=== PATIENT | male | born 1990 | race Caucasian/White ===

== ENCOUNTER 2017-10-15 13:05 | Emergency (ER) | payer OTHER ==
[2017-10-15 13:16] VITALS: BP 120/64; PULSE 64; RESP 16; TEMP 96.9
--- NOTE | 2017-10-15 13:39 | XR ---
PROCEDURE: XR hand complete RT 3 views DATE AND TIME: 10/15/2017 1:33 PM REFERRING PHYSICIAN: Akira Bravo CLINICAL INDICATION: PHH, Pain. 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 TECHNIQUE: Department protocol. COMPARISON: None FINDINGS: Bones and joints and soft tissues are unremarkable. IMPRESSION: Negative examination.
--- NOTE | 2017-10-15 13:57 | ED ---
General Adult HPI - General Chief complaint: Extremity Injury, Upper Stated complaint: right hand pain Time Seen by Provider: 10/15/17 13:15 Source: patient, RN notes reviewed Mode of arrival: ambulatory Limitations: no limitations - History of Present Illness Initial comments: 27-year-old male presents to the emergency department for chief complaint of right hand pain 3 weeks. Patient states that 3 weeks ago he was pulling on a rope when he felt a sharp pain in his right hand. Patient states the pain has worsened since that time. Patient complains of pain mostly in the first through third metacarpals palmar aspect right hand. Patient denies pain in the volar aspect of the right wrist. Patient states the tip of his thumb feels numb and it is difficult to close his hand all the way. Patient denies any fevers or chills at home. Patient denies any other injuries. Patient did not fall or hit his head. Patient has been taking Motrin but states ice does not help. Patient states the Motrin helps somewhat. Patient has no other complaints at this time including shortness of breath, chest pain, abdominal pain, nausea or vomiting, headache, or visual changes. - Related Data Previous Rx's Medication Instructions Recorded Ibuprofen [Motrin] 600 mg PO Q8HR PRN #20 tab 10/15/17 Allergies Allergy/AdvReac Type Severity Reaction Status Date / Time No Known Allergies Allergy Verified 10/15/17 13:16 Review of Systems ROS Statement: Those systems with pertinent positive or pertinent negative responses have been documented in the HPI. ROS Other: All systems not noted in ROS Statement are negative. Past Medical History Past Medical History: No Reported History History of Any Multi-Drug Resistant Organisms: None Reported Past Surgical History: No Surgical Hx Reported Past Psychological History: No Psychological Hx Reported Smoking Status: Current every day smoker Past Alcohol Use History: Occasional Past Drug Use History: None Reported General Exam Limitations: no limitations General appearance: alert, in no apparent distress Head exam: Present: atraumatic, normocephalic, normal inspection Eye exam: Present: normal appearance ENT exam: Present: normal exam, mucous membranes moist Neck exam: Present: normal inspection, full ROM. Absent: tenderness, meningismus, lymphadenopathy Respiratory exam: Present: normal lung sounds bilaterally. Absent: respiratory distress, wheezes, rales, rhonchi, stridor Cardiovascular Exam: Present: regular rate, normal rhythm, normal heart sounds. Absent: systolic murmur, diastolic murmur, rubs, gallop, clicks Extremities exam: Present: tenderness (Patient has tenderness along the first through third metacarpals palmar aspect in the right hand. No wrist or scaphoid tenderness.), normal capillary refill (Refill less than 2 seconds and radial pulse 2+. Normal Ye test.), other (Sensation intact in the right upper extremity. Negative Tinel sign. Negative Phalen sign.). Absent: full ROM (Patient has full extension of all fingers in the right hand. Patient does have some limited flexion of all fingers in the right hand. Fingers are not held in flexion. No pain with active or passivie extension of the fingers 1 - 3. No swelling over any tendons in the finger. Patient has full range of motion in the right wrist. ), joint swelling (No swelling or ecchymosis noted in the right hand. No erythema or signs of infection.) Course Vital Signs 10/15/17 13:14 Temperature 96.9 F L Pulse Rate 64 Respiratory 16 Rate Blood Pressure 120/64 O2 Sat by Pulse 98 Oximetry Medical Decision Making - Medical Decision Making 27-year-old male presents to the emergency department for a chief complaint of right hand pain 3 weeks. Patient was pulling on a rope when he felt a sharp pain in his right hand. Patient states the pain is mostly in the first through third metacarpals on the palmar aspect of the right hand. Patient states his thumb feels somewhat numb. No fevers at home. patient states it has been a trigger finger for a few weeks and feels a snap when he flexed and extended it. 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 On exam no swelling or ecchymosis noted of the right hand. Patient has limited flexion of the fingers of the right hand but is able to flex them somewhat. Full extension. No signs of infection in the tendons of the hand. No redness or swelling over tendons. Diffuse tenderness over 1-3 metacarpals palmar aspect. No pain with active or passive extension. Negative [place] signs. No openings in the skin of the hand. Neurovascular intact in the right upper extremity. No tenderness in the wrist and a negative Phalen/Tinel sign. Not likely a carpal tunnel. X-ray of the right hand shows bones joints and soft tissues as unremarkable. Negative x-ray. Patient will be aced wrapped and rest ice and elevate the right hand. He will be referred to orthopedics. He will follow up with primary care in 1-2 weeks. He will return to the emergency department if he has any worsening symptoms. he was educated to return if he has any redness of the palmar aspect of the hand or pain with extension. Disposition Clinical Impression: Hand pain, right Disposition: HOME SELF-CARE Condition: Good Instructions: Hand Sprain (ED), RICE Therapy (ED) Additional Instructions: Please take Motrin and Tylenol for pain. Please rest ice and elevate the right hand. Please follow-up with orthopedics in one to 2 days. Return to the emergency department if you have any worsening symptoms. Prescriptions: Ibuprofen [Motrin] 600 mg PO Q8HR PRN #20 tab PRN Reason: Pain Is patient prescribed a controlled substance at d/c from ED?: No Referrals: Duane Ken III, MD [Primary Care Provider] - 1-2 days Saurav Ceballos DO [Doctor of Osteopathic Medicine] - 1-2 days Time of Disposition: 13:56
== END 2017-10-15 14:28 | disposition home or self-care (01) ==
LOC: EC 13:05
DX: M25.541 Pain in joints of right hand (principal); R20.0 Anesthesia of skin; F17.200 Nicotine dependence, unspecified, uncomplicated; X50.0XXA Overexertion from strenuous movement or load, initial encounter; Y93.89 Activity, other specified
CPT/HCPCS: 99283

== ENCOUNTER 2018-12-27 04:50 | Emergency (ER) | payer OTHER ==
--- NOTE | 2018-12-27 06:27 | XR ---
EXAM: XR Chest, 2 Views CLINICAL HISTORY: ITS.REASON XR Reason: pain TECHNIQUE: Frontal and lateral views of the chest. COMPARISON: No relevant prior studies available. FINDINGS: Lungs: Unremarkable. No consolidation. Pleural space: Unremarkable. No pneumothorax. Heart: Unremarkable. No cardiomegaly. Mediastinum: Unremarkable. Bones/joints: Unremarkable. IMPRESSION: Normal chest x-rays.
--- NOTE | 2018-12-27 07:10 | ED ---
Extremity Problem HPI - Related Data Previous Rx's Medication Instructions Recorded Ibuprofen [Motrin] 600 mg PO Q8HR PRN #20 tab 10/15/17 Allergies Allergy/AdvReac Type Severity Reaction Status Date / Time No Known Allergies Allergy Verified 10/15/17 13:16 Review of Systems ROS Statement: Those systems with pertinent positive or pertinent negative responses have been documented in the HPI. ROS Other: All systems not noted in ROS Statement are negative. Past Medical History Past Medical History: No Reported History History of Any Multi-Drug Resistant Organisms: None Reported Past Surgical History: No Surgical Hx Reported Past Psychological History: No Psychological Hx Reported Smoking Status: Current every day smoker Past Alcohol Use History: Occasional Past Drug Use History: None Reported Medical Decision Making - Medical Decision Making This patient was begun on downtime, please see the paper record. Disposition Clinical Impression: Ganglion cyst Disposition: HOME SELF-CARE Condition: Good Instructions (If sedation given, give patient instructions): Ganglion Cysts (ED) Is patient prescribed a controlled substance at d/c from ED?: No Referrals: None,Stated [Primary Care Provider] - 1-2 days Jessee Winslow MD [STAFF PHYSICIAN] - 1-2 days
== END 2018-12-27 07:17 | disposition home or self-care (01) ==
LOC: EC 04:50
DX: M67.432 Ganglion, left wrist (principal); I45.10 Unspecified right bundle-branch block; F17.200 Nicotine dependence, unspecified, uncomplicated
CPT/HCPCS: 71046; 99283

== ENCOUNTER 2019-08-20 18:30 | Emergency (ER) | payer OTHER ==
[2019-08-20 18:34] VITALS: RESP 18; TEMP 98.3
[2019-08-20] MEDS ORDERED: MORPHINE SULFATE 4 MG/ML SYRINGE IM STA (18:51)
--- NOTE | 2019-08-20 18:54 | ED ---
Male Urogenital HPI - General Source: patient Mode of arrival: ambulatory Limitations: no limitations <Regine Garcia - Last Filed: 08/20/19 18:51> <Rashmi Colon - Last Filed: 08/20/19 22:13> - General Chief complaint: Urogenital Stated complaint: testicle pain Time Seen by Provider: 08/20/19 18:35 - History of Present Illness Initial comments: Patient is a 29-year-old male presenting to the emergency Department with complaints of severe pain in the left side of his scrotum times one week. Patient states he noticed the pain started approximately one week ago but then today the pain intensified. Patient is tearful on exam. Patient states he denies any recent fever, chills, abdominal pain. Denies history of hernias. He denies dysuria, discharge. He has little concern for STDs. He denies any trauma or injuries. He has no other complaints. Patient describes his pain as sharp and a 10/10. Patient has no other complaints. Upon arrival to the ER, vital signs are stable. (Regine Garcia) - Related Data Previous Rx's Medication Instructions Recorded Ibuprofen [Motrin] 600 mg PO Q8HR PRN #20 tab 10/15/17 Doxycycline Hyclate 100 mg PO BID 10 Days #20 tab 08/20/19 Allergies Allergy/AdvReac Type Severity Reaction Status Date / Time No Known Allergies Allergy Verified 08/20/19 18:35 Review of Systems ROS Other: All systems not noted in ROS Statement are negative. <Regine Garcia - Last Filed: 08/20/19 18:51> ROS Other: All systems not noted in ROS Statement are negative. <Rashmi Colon - Last Filed: 08/20/19 22:13> ROS Statement: Those systems with pertinent positive or pertinent negative responses have been documented in the HPI. Past Medical History Past Medical History: No Reported History History of Any Multi-Drug Resistant Organisms: None Reported Past Surgical History: No Surgical Hx Reported Past Psychological History: No Psychological Hx Reported Smoking Status: Current every day smoker Past Alcohol Use History: Occasional Past Drug Use History: None Reported <Rgeine Garcia - Last Filed: 08/20/19 18:51> General Exam Limitations: no limitations <Regine Garcia - Last Filed: 08/20/19 18:51> - General Exam Comments Initial Comments: GENERAL: Patient is crying on exam, appears to be an mild distress secondary to pain. HEAD: Atraumatic, normocephalic. EYES: Pupils equal round and reactive to light, extraocular movements intact, sclera anicteric, conjunctiva are normal. ENT: TMs normal, nares patent, oropharynx clear without exudates. Moist mucous membranes. NECK: Normal range of motion, supple without lymphadenopathy or JVD. LUNGS: Breath sounds clear to auscultation bilaterally and equal. No wheezes rales or rhonchi. HEART: Regular rate and rhythm without murmurs, rubs or gallops. ABDOMEN: Soft, nontender, normoactive bowel sounds. No guarding, no rebound. No masses appreciated. : Normal external exam, severe pain on the left side of the scrotum with palpation. There is no erythema,no significant swelling. Patient is circumcised. There is no discharge. EXTREMITIES: Normal range of motion, no pitting or edema. No clubbing or cyanosis. NEUROLOGICAL: Normal speech, normal gait. PSYCH: Normal mood, normal affect. SKIN: Warm, Dry, normal turgor, no rashes or lesions noted. (Regine Garcia) Course Vital Signs 08/20/19 08/20/19 18:32 22:03 Temperature 98.3 F Pulse Rate 83 79 Respiratory 18 18 Rate Blood Pressure 146/72 134/71 O2 Sat by Pulse 99 99 Oximetry Medical Decision Making - Radiology Data Radiology results: report reviewed, image reviewed <Rashmi Colon - Last Filed: 08/20/19 22:13> - Medical Decision Making 29-year-old male patient presented to the emergency department today for evaluation of testicular pain for the last week. States the pain worsened significantly today. Patient was initially seen by Regine Garcia PA-c. I took over care. Urinalysis reviewed and was unremarkable. US report was reviewed and showed evidence for acute epididymitis. Given the patient's age or did discuss possibility of sexually transmitted infections as a cause for his symptoms. He will be given a dose of Rocephin and did on doxycycline for 10 days. He is instructed to follow-up with his primary care physician for recheck in 1-2 days. Chlamydia and gonorrhea testing are pending. Return parameters were discussed in detail. He verbalizes understanding and agrees with this plan. (Rashmi Colon) - Lab Data Lab Results 08/20/19 Range/Units 19:27 Urine Color Yellow Urine Appearance Clear (Clear) Urine pH 6.5 (5.0-8.0) Ur Specific [place] 1.030 (1.001-1.035) Urine Protein Negative (Negative) Urine Glucose (UA) Negative (Negative) Urine Ketones Negative (Negative) Urine Blood Negative (Negative) Urine Nitrite Negative (Negative) Urine Bilirubin Negative (Negative) Urine Urobilinogen <2.0 (<2.0) mg/dL Ur Leukocyte Esterase Trace H (Negative) Urine RBC <1 (0-5) /hpf Urine WBC 1 (0-5) /hpf Amorphous Sediment Rare H (None) /hpf Urine Mucus Rare H (None) /hpf - Radiology Data Scrotal ultrasound with Doppler was obtained. Report reviewed in its entirety. Impression by Dr. Tee shows increased local blood flow and small area of the epididymis suspicious for acute epididymitis. (Rashmi oClon) Disposition <Regine Garcia - Last Filed: 08/20/19 18:51> Is patient prescribed a controlled substance at d/c from ED?: No Time of Disposition: 21:58 <Rashmi Colon - Last Filed: 08/20/19 22:13> Clinical Impression: Acute epididymitis Disposition: HOME SELF-CARE Condition: Good Instructions (If sedation given, give patient instructions): Epididymitis (ED) Additional Instructions: Complete antibiotic prescription in full to cure your infection. Follow up with your primary care physician for recheck in 1-2 days. Await STD results which take about 3 days, if you have not heard anything at this time he can call free results. Return to the emergency department for any new, worsening, or concerning symptoms. Prescriptions: Doxycycline Hyclate 100 mg PO BID 10 Days #20 tab Referrals: Michael Lizarraga MD [STAFF PHYSICIAN] - 1-2 days
[2019-08-20 19:52] LABS: Amorphous Sediment,Urine Rare /hpf; Appearance,Urine Clear (Clear); Bilirubin,Urine Negative (Negative); Blood,Urine Negative (Negative); Color,Urine Yellow; Glucose,Urine (UA) Negative (Negative); Ketones,Urine Negative (Negative); Leukocyte Esterase,Urine Trace (Negative); Mucus,Urine Rare /hpf; Nitrite,Urine Negative (Negative); PH, Urine 6.5 (5.0-8.0); Protein,Urine Negative (Negative); RBC,Urine <1 /hpf (0-5); Urobilinogen,Urine <2.0 mg/dL (<2.0); WBC,Urine 1 /hpf (0-5)
--- NOTE | 2019-08-20 21:13 | US ---
EXAMINATION TYPE: US scrotum with doppler. Grayscale and color Doppler Duplex imaging performed of gretchen nichols scrotum. DATE OF EXAM: 08/20/2019 COMPARISON: NONE CLINICAL HISTORY: severe pain. Severe left testicular pain x 1 week. EXAM MEASUREMENTS: TESTICLES: Right Testicle: 3.8 x 2.6 x 2.0 cm Left Testicle: 3.8 x 2.6 x 1.9 cm EPIDIDYMIS HEAD: Right Epididymis: 0.8 x 1.3 x 1.0 cm Left Epididymis: 0.8 x 1.7 x 1.1 cm *Anechoic area seen left epididymal head measurin.4 x 0.3 x 0.4 cm. What appears to be the left epididymal tail inferolateral to the left testicle, increased vascularity seen (Image [id number]). Patient's area of pain is left sided/lateral. Doppler performed to assess for testicular vascularity; bilateral color flow and waveforms are seen. Presence of hydroceles: Not seen. Presence of varicoceles: Vessels appear to measure up to 2.2 mm on the left side. Increased vascularity to 4 mm hypoechoic oval area left epididymis. IMPRESSION: Increased focal blood flow in small area of epididymis suspicious for acute epididymitis.
[2019-08-20] MEDS ORDERED: cefTRIAXone 250 MG VIAL IM STA (21:57)
[2019-08-20] MEDS ORDERED: DOXYCYCLINE 100 MG CAP PO STA (21:57)
[2019-08-20 22:06] VITALS: BP 134/71; PULSE 79
== END 2019-08-20 22:10 | disposition home or self-care (01) ==
LOC: EC 18:30
DX: N45.1 Epididymitis (principal); F17.200 Nicotine dependence, unspecified, uncomplicated
CPT/HCPCS: 81001; 87491; 87591; 93975; 76870; 96372; 99284; J0696

== ENCOUNTER 2020-09-12 22:39 | Emergency (ER) | payer OTHER ==
[2020-09-12 22:42] VITALS: BP 127/82; PULSE 77; RESP 18; TEMP 98.3
--- NOTE | 2020-09-12 22:55 | ED ---
URI HPI - General Chief Complaint: Upper Respiratory Infection Stated Complaint: CHASE Time Seen by Provider: 09/12/20 22:44 Source: patient Mode of arrival: ambulatory Limitations: no limitations - History of Present Illness Initial Comments: 30-year-old male who does not endorse any past medical or surgical history presenting to the ER today for chief complaint of sore throat cough. Patient states the past 4 days he has had sore throat cough and just doesn't feel well. He denies any nausea vomiting chest pain shortness of breath abdominal pain rash es. She denies any diarrhea. Patient has no additional complaints he denies any difficulty breathing swallowing but does state he is very painful to swallow. Remaining review systems negative upon arrival patient appears well and nontoxic distress - Related Data Previous Rx's Medication Instructions Recorded Ibuprofen [Motrin] 600 mg PO Q8HR PRN #20 tab 10/15/17 Doxycycline Hyclate 100 mg PO BID 10 Days #20 tab 08/20/19 Allergies Allergy/AdvReac Type Severity Reaction Status Date / Time No Known Allergies Allergy Verified 09/12/20 22:40 Review of Systems ROS Statement: Those systems with pertinent positive or pertinent negative responses have been documented in the HPI. ROS Other: All systems not noted in ROS Statement are negative. Past Medical History Past Medical History: No Reported History History of Any Multi-Drug Resistant Organisms: None Reported Past Surgical History: No Surgical Hx Reported Past Psychological History: No Psychological Hx Reported Past Alcohol Use History: Occasional Past Drug Use History: None Reported General Exam - General Exam Comments Initial Comments: General: The patient is awake and alert, in no distress, and does not appear acutely ill. Eye: Pupils are equal, round and reactive to light, extra-ocular movements are intact. No nystagmus. There is normal conjunctiva bilaterally. No signs of icterus. Ears, nose, mouth and throat: There are moist mucous membranes and no oral lesions. Oropharynx is non-erythematous uvula midline with no tonsillar enlargement or exudates noted Neck: The neck is supple, there is no tenderness or JVD. Cardiovascular: There is a regular rate and rhythm. No murmur, rub or gallop is appreciated. Respiratory: Lungs are clear to auscultation, respirations are non-labored, breath sounds are equal. No wheezes, stridor, rales, or rhonchi. Musculoskeletal: Normal ROM, no tenderness. Strength 5/5. Sensation intact. Radial pulses equal bilaterally 2+. Neurological: A&O x 3. CN II-XII intact grossly, There are no obvious motor or sensory deficits. Coordination appears grossly intact. Speech is normal. Skin: Skin is warm and dry and no rashes or lesions are noted. Psychiatric: Cooperative, appropriate mood & affect, normal judgment. Limitations: no limitations Course Vital Signs 09/12/20 22:40 Temperature 98.3 F Pulse Rate 77 Respiratory 18 Rate Blood Pressure 127/82 O2 Sat by Pulse 97 Oximetry Medical Decision Making - Medical Decision Making Strep testing negative. Overall oropharynx exam unremarkable. Patient denies concern for sexual transmitted diseases. Chest x-ray clear was clear with no focal consolidations on imaging. At this time feel patient most likely has a viral upper respiratory infection, which has been negative 2 and feel this is less likely to be a source. Patient is agreeable symptomatically treatment and outpatient primary care follow-up return for worsening symptoms - Lab Data Lab Results 09/12/20 09/12/20 Range/Units 22:59 22:59 Coronavirus (PCR) Not Detected (Not Detectd) Group A Strep Rapid Negative (Negative) Disposition Clinical Impression: Cough, Dyspnea, Sore throat Disposition: HOME SELF-CARE Condition: Good Instructions (If sedation given, give patient instructions): Upper Respiratory Infection (ED) Additional Instructions: Please use medication as discussed. Please follow-up with family doctor in the next 2 days. Please return to emergency room if the symptoms increase or worsen or for any other concerns. Is patient prescribed a controlled substance at d/c from ED?: No Referrals: None,Stated [Primary Care Provider] - 1-2 days [facility]-2 days Time of Disposition: 23:36
--- NOTE | 2020-09-12 23:30 | XR ---
EXAMINATION TYPE: XR chest 2V DATE OF EXAM: 09/12/2020 COMPARISON: 12/19/2018 HISTORY: Cough. Chest pain TECHNIQUE: FINDINGS: Heart and mediastinum are normal. Lungs are clear. Diaphragm is normal. Bony thorax appears normal. IMPRESSION: Normal chest. No change.
[2020-09-12] MEDS ORDERED: dexAMETHasone 2 MG TAB PO STA (23:37)
== END 2020-09-13 00:06 | disposition home or self-care (01) ==
LOC: EC 22:39
DX: J02.9 Acute pharyngitis, unspecified (principal); R06.00 Dyspnea, unspecified
CPT/HCPCS: 87081; 87430; 87635; 71046; 99283; J8540